=== PATIENT | male | born 1980 | race Caucasian/White ===

== ENCOUNTER 2023-08-01 09:21 | Inpatient (IN) | payer BC ==
[2023-08-01] MEDS ORDERED: ASPIRIN 81 MG CHEWABLE TABLET ONE (09:45)
[2023-08-01 09:47] LABS: Hematocrit 47.8 % (39.6-49.0); Lymphocytes % 27.1 % (15.3-44.8); MCV 83.4 fL (80-100); MPV 7.6 fL (7.6-11.3); Platelets 262 thou/uL (152-406); RBC Red Blood Cell Count 5.74 M/uL (4.33-5.43)
[2023-08-01 09:49] LABS: Protime INR 1.18
--- NOTE | 2023-08-01 09:56 | RAD REPORT ---
EXAM DESCRIPTION: RAD - Chest Single View - 08/01/2023 9:48 am CLINICAL HISTORY: CHEST PAIN Chest pain. COMPARISON: No comparisons FINDINGS: Portable technique limits examination quality. The lungs are grossly clear. The heart is normal in size. No displaced fractures. IMPRESSION: No acute intrathoracic process suspected.
[2023-08-01 10:05] LABS: Potassium 3.7 mEq/L (3.5-5.1)
[2023-08-01 10:07] LABS: Troponin High Sensitivity 313.2 pg/mL (<58.9)
--- NOTE | 2023-08-01 10:24 | EDPHYS ---
Physician Documentation [facility] Name: Shawn Pearson Age: 43 yrs Sex: Male : 1980 Arrival Date: 08/01/2023 Time: : Bed 6 Private MD: ED Physician Mike Hernandez HPI: 08/01 09:31 This 43 yrs old Male presents to ER via Ambulatory with complaints of Chest Pain. jh7 09:31 Onset: The symptoms/episode began/occurred yesterday, and became worse today. jh7 Associated signs and symptoms: Pertinent positives: chest pain, Pertinent negatives: abdominal pain, fever, shortness of breath, vomiting, wheezing. 43-year-old male presents to the ER for chest pain that started yesterday. He reports that the pain worsened today and he woke up diaphoretic. He does have a history of anxiety and took a lorazepam as well as a baby aspirin before coming. He denies any cardiac history and reports a negative stress test in May. He describes the pain as pressure over the left side of his sternum. He states that he is also on metoprolol for rate control.. Historical: - Allergies: 09: No Known Allergies; nj1 - Home Meds: : losartan 100 mg oral tablet 1 tab daily [Active]; rosuvastatin 20 mg oral tablet 1 tab mb9 daily [Active]; lamotrigine 150 mg oral tablet 2 tabs daily [Active]; esomeprazole magnesium 40 mg oral capsule,delayed release (e.c.) 1 cap daily [Active]; metoprolol tartrate 25 mg Oral tablet 2 tabs daily [Active]; amlodipine 5 mg tablet 1 tab daily [Active]; tadalafil 10 mg oral tablet 1 tab daily [Active]; anastrozole 1 mg oral tablet 2 tab weekly [Active]; - PMHx: : Hypertensive disorder; Hypercholesterolemia; Bipolar disorder; nj1 - PSHx: 10: None; mb9 - Immunization history:: Client reports receiving the 2nd dose of the Covid vaccine. - Social history:: Smoking status: Patient denies any tobacco usage or history of. ROS: 09:31 Constitutional: Negative for fever, chills, and weight loss, Eyes: Negative for injury, jh7 pain, redness, and discharge, Neck: Negative for injury, pain, and swelling, Respiratory: Negative for shortness of breath, cough, wheezing, and pleuritic chest pain, Abdomen/GI: Negative for abdominal pain, nausea, vomiting, diarrhea, and constipation, MS/Extremity: Negative for injury and deformity, Skin: Negative for injury, rash, and discoloration, Neuro: Negative for headache, weakness, numbness, tingling, and seizure, 09:31 Cardiovascular: Positive for chest pain, Negative for palpitations, 09:31 All other systems are negative, Exam: :31 Constitutional: This is a well developed, well nourished patient who is awake, alert, jh7 and in no acute distress. Head/Face: Normocephalic, atraumatic. Cardiovascular: Regular rate and rhythm with a normal S1 and S2. No gallops, murmurs, or rubs. Normal PMI, no JVD. No pulse deficits. Respiratory: Lungs have equal breath sounds bilaterally, clear to auscultation and percussion. No rales, rhonchi or wheezes noted. No increased work of breathing, no retractions or nasal flaring. Back: No spinal tenderness. No costovertebral tenderness. Full range of motion. Skin: Warm, dry with normal turgor. Normal color with no rashes, no lesions, and no evidence of cellulitis. MS/ Extremity: Pulses equal, no cyanosis. Neurovascular intact. Full, normal range of motion. Neuro: Awake and alert, GCS 15, oriented to person, place, time, and situation. Motor strength 5/5 in all extremities. Sensory grossly intact. Normal gait. Vital Signs: 09:23 BP 149 / 87; Pulse 92; Resp 17; Temp 97.8(O); Pulse Ox 98% on R/A; Weight 136.08 kg; nj1 Height 6 ft. 3 in. ; Pain 3/10; 09:59 BP 123 / 76; Pulse 84; Resp 18; Pulse Ox 99% ; nw1 11:16 BP 135 / 90; Pulse 87; Resp 14; Pulse Ox 99% ; ko1 12:32 BP 124 / 82; Pulse 82; Resp 16; Pulse Ox 99% ; ko1 09:23 Body Mass Index 37.50 (136.08 kg, 190.5 cm) [facility] 09:23 Pain Scale: Adult [facility] MDM: 09:23 Patient medically screened. [facility] 11:02 Differential diagnosis: pneumonia Acute OR, NSTEMI, unstable angina, stable angina, jh7 costochondritis, cardiac arrhythmia. Data reviewed: vital signs, nurses notes, lab test result(s), EKG, radiologic studies, plain films. Consideration of Admission/Observation Patient was admitted/placed on observation. Management of patient was discussed with the following: Hospitalist: OMAIRA Ferguson for Dr. Lane. I considered the following discharge prescriptions or medication management in the emergency department Medications were administered in the Emergency Department. See MAR. Independent interpretation of the following test(s) in the Emergency Department EKG: See my EKG interpretation above. Care significantly affected by the following chronic conditions: Hypertension. Scoring Tools HEART Score: History: Total Score = 4. Counseling: I had a detailed discussion with the patient and/or guardian regarding the historical points, exam findings, and any diagnostic results supporting the discharge/admit diagnosis, the need for further work-up and treatment in the hospital. Response to treatment: the patient's symptoms have markedly improved after treatment. 08/01 09:28 Order name: Basic Metabolic Panel; Complete Time: 10: [facility] 08/01 09:28 Order name: CBC with Diff; Complete Time: [facility] 08/01 09:28 Order name: D-Dimer; Complete Time: [facility] 08/01 09:28 Order name: NT PRO-BNP; Complete Time: 10: [facility] 08/01 09:28 Order name: PT-INR; Complete Time: [facility] 08/01 09:28 Order name: Troponin HS; Complete Time: 10: [facility] 08/01 11:08 Order name: Ptt, Activated; Complete Time: mb9 08/01 09:28 Order name: XRAY Chest (1 view); Complete Time: [facility] 08/01 09:28 Order name: EKG; Complete Time: [facility] 08/01 09:28 Order name: Cardiac monitoring; Complete Time: [facility] 08/01 09:28 Order name: EKG - Nurse/Tech; Complete Time: : [facility] 08/01 09:28 Order name: IV Saline Lock; Complete Time: [facility] 08/01 09:28 Order name: Labs collected and sent; Complete Time: [facility] 08/01 09:28 Order name: O2 Per Protocol; Complete Time: [facility] 08/01 09:28 Order name: O2 Sat Monitoring; Complete Time: [facility] 08/01 11:00 Order name: NPO; Complete Time: 11:06 la1 EC: Rate is 89 beats/min. Rhythm is regular. QRS Gary is Normal. [place] interval is normal at [facility] 172 msec. QRS interval is normal at 94 msec. QT interval is normal at 348 msec. No Q waves. T waves are Normal. No ST changes noted. Clinical impression: Normal ECG. Administered Medications: 09:32 Drug: Aspirin PO Chewable Tablet 243 mg PO once; 81 mg tablets x 3 Route: PO; 9 11:40 Drug: Heparin (OR-Bolus No thrombolytic) - HEParin IVP 60 units/kg IVP once; Max 5000 ko1 units {Co-Signature: samra (Sharri Medina RN).} Route: IVP; Site: left forearm; 11:45 Drug: Heparin (OR Drip) 12 units/kg/[place] - ([place] [address] units, D5W IV 500 ml) IV at ko1 calculated rate Per protocol; Max initial rate 1000 units/hr {Co-Signature: samra (Sharri Medina RN).} Route: IV; Rate: calculated rate; Site: left forearm; Disposition Summary: 08/01/23 10:23 Hospitalization Ordered Notes: Hospitalization Status: Inpatient Admission [facility] Provider: Heri Lane [facility] Location: Telemetry/MedSurg (Inpatient) [facility] Condition: Stable [facility] Problem: new [facility] Symptoms: have improved [facility] Bed/Room Type: Standard [facility] Room Assignment: [facility] Diagnosis - Subsequent non-ST elevation (NSTEMI) myocardial infarction [facility] - Essential (primary) hypertension [facility] Forms: - Medication Reconciliation Form [facility] - SBAR form [facility] - Leadership Thank You Letter [facility] Signatures: Dispatcher [employer] EDMarty Tran FNP-C FNP-[facility] Gosia Yi FNP FNP [facility] Varsha Wagner RN RN ko1 Sharri Medina RN RN mb9 Beth Foss RN RN nj1 Sharri Medina RN mb9 Corrections: (The following items were deleted from the chart) 11:02 09:31 43-year-old male presents to the ER for chest pain that started yesterday. He jh7 reports that the pain worsened today. He does have a history of anxiety and took a lorazepam before coming. He denies any cardiac history and reports a negative stress test in May. He describes the pain as pressure over the left side of his sternum. He states that he is also on metoprolol for rate control.. jh7
--- NOTE | 2023-08-01 10:24 | ER ---
Nurse's Notes [facility] Name: Shawn Pearson Age: 43 yrs Sex: Male : 1980 Arrival Date: 08/01/2023 Time: : Bed 6 Private MD: Diagnosis: Subsequent non-ST elevation (NSTEMI) myocardial infarction;Essential (primary) hypertension Presentation: 08/01 09:23 Chief complaint: Patient states: Chest pain since yesterday, worsen in the afternoon. [email or web address] Took a lorazepam this morning, pain a little better but still there. Had cardiac work up not long ago. 09:23 Coronavirus screen: Vaccine status: Patient reports receiving the 2nd dose of the covid nj1 vaccine. Ebola Screen: Patient denies travel to an Ebola-affected area in the 21 days before illness onset. Initial Sepsis Screen: Does the patient meet any 2 criteria? HR > 90 bpm. No. Patient's initial sepsis screen is negative. Does the patient have a suspected source of infection? No. Patient's initial sepsis screen is negative. Risk Assessment: Do you want to hurt yourself or someone else? Patient reports no desire to harm self or others. Onset of symptoms was July 21, 2023. 09:23 Method Of Arrival: Ambulatory [facility] 09:23 Acuity: PORFIRIO 3 [facility] Historical: - Allergies: : No Known Allergies; nj1 - Home Meds: : losartan 100 mg oral tablet 1 tab daily [Active]; rosuvastatin 20 mg oral tablet 1 tab mb9 daily [Active]; lamotrigine 150 mg oral tablet 2 tabs daily [Active]; esomeprazole magnesium 40 mg oral capsule,delayed release (e.c.) 1 cap daily [Active]; metoprolol tartrate 25 mg Oral tablet 2 tabs daily [Active]; amlodipine 5 mg tablet 1 tab daily [Active]; tadalafil 10 mg oral tablet 1 tab daily [Active]; anastrozole 1 mg oral tablet 2 tab weekly [Active]; - PMHx: : Hypertensive disorder; Hypercholesterolemia; Bipolar disorder; nj1 - PSHx: 10: None; mb9 - Immunization history:: Client reports receiving the 2nd dose of the Covid vaccine. - Social history:: Smoking status: Patient denies any tobacco usage or history of. Screenin:[facility] Fall Risk Assessment (Adult) History of falling in the last 3 months, mb9 including since admission No falls in past 3 months (0 pts) Confusion or Disorientation No (0 pts) Intoxicated or Sedated No (0 pts) Impaired Gait No (0 pts) Mobility Assist Device Used No (0 pt) Altered Elimination No (0 pt) Score/Fall Risk Level 0 - 2 = Low Risk Oriented to surroundings, Maintained a safe environment, Educated pt \T\ family on fall prevention, incl call for assistance when getting out of bed. Abuse screen: Denies threats or abuse. Nutritional screening: No deficits noted. Tuberculosis screening: No symptoms or risk factors identified. Assessment: 09:33 General: Appears in no apparent distress. Behavior is calm, cooperative, appropriate mb9 for age. Pain: Complains of pain in chest Pain does not radiate. Pain currently is 3 out of 10 on a pain scale. Quality of pain is described as dull, throbbing, Pain began 1 day ago. Is intermittent. Neuro: Borrego Agitation-Sedation Scale (RASS): 0 - Alert and Calm Level of Consciousness is awake, alert, obeys commands, Oriented to person, place, time, situation, Appropriate for age. Cardiovascular: Reports chest pain, diaphoresis, Heart tones S1 S2 present Patient's skin is warm and dry. Rhythm is regular. Respiratory: Airway is patent Respiratory effort is even, unlabored, Respiratory pattern is regular, symmetrical, Breath sounds are clear bilaterally. GI: Abdomen is obese, Bowel sounds present X 4 quads. Abd is soft and non tender X 4 quads. : No signs and/or symptoms were reported regarding the genitourinary system. EENT: No signs and/or symptoms were reported regarding the EENT system. Derm: Skin is pink, warm \T\ dry. Musculoskeletal: Range of motion: intact in all extremities. 10:31 Reassessment: No changes from previously documented assessment. Patient and/or family mb9 updated on plan of care and expected duration. Pain level reassessed. Patient is alert, oriented x 3, equal unlabored respirations, skin warm/dry/pink. 11:48 Reassessment: No changes from previously documented assessment. Patient and/or family mb9 updated on plan of care and expected duration. Pain level reassessed. Patient is alert, oriented x 3, equal unlabored respirations, skin warm/dry/pink. Vital Signs: 09:23 BP 149 / 87; Pulse 92; Resp 17; Temp 97.8(O); Pulse Ox 98% on R/A; Weight 136.08 kg; nj1 Height 6 ft. 3 in. ; Pain 3/10; 09:59 BP 123 / 76; Pulse 84; Resp 18; Pulse Ox 99% ; nw1 11:16 BP 135 / 90; Pulse 87; Resp 14; Pulse Ox 99% ; ko1 12:32 BP 124 / 82; Pulse 82; Resp 16; Pulse Ox 99% ; ko1 09:23 Body Mass Index 37.50 (136.08 kg, 190.5 cm) nj1 09:23 Pain Scale: Adult [facility] ED Course: 09:22 Patient arrived in ED. im 09:23 Gosia Yi FNP is PHCP. jh7 09:23 Mike Hernandez MD is Attending Physician. jh7 09:29 Sharri Medina, MATTHEW is Primary Nurse. mb9 09:30 Basic Metabolic Panel Sent. mb9 09:30 CBC with Diff Sent. mb9 09:30 D-Dimer Sent. mb9 09:30 NT PRO-BNP Sent. mb9 09:30 PT-INR Sent. mb9 09:30 Troponin HS Sent. mb9 09:30 EKG done, by ED staff, reviewed by Gosia PEREIRA. Inserted saline lock: 18 gauge mb9 in right antecubital area, using aseptic technique. Blood collected. 09:31 Triage completed. nj1 09:31 Arm band placed on right wrist. nj1 09:34 Placed in gown. Bed in low position. Call light in reach. Side rails up X 1. Client mb9 placed on continuous cardiac and pulse oximetry monitoring. NIBP monitoring applied. fixed capital clerk on. 09:50 XRAY Chest (1 view) In Process Unspecified. EDMS 10:06 Notified Nurse Practitioner and/or Physician [place] Operator of a critical lab result(s), hb TROPONIN 313.2. 10:[address] MD is Hospitalizing Provider. 7 11:23 Ptt, Activated Sent. mb9 11:35 Inserted saline lock: 18 gauge in left forearm, using aseptic technique. zm 12:32 No provider procedures requiring assistance completed. Patient admitted, IV remains in ko1 place. Patient maintains SpO2 saturation greater than 95% on room air. 12:32 Provided Education on: Procedure Consent. ko1 Administered Medications: 09:32 Drug: Aspirin PO Chewable Tablet 243 mg PO once; 81 mg tablets x 3 Route: PO; mb9 11:40 Drug: Heparin (IA-Bolus No thrombolytic) - HEParin IVP 60 units/kg IVP once; Max 5000 ko1 units {Co-Signature: samra (Sharri Medina RN).} Route: IVP; Site: left forearm; 11:45 Drug: Heparin (IA Drip) 12 units/kg/[place] - ([place] [address] units, D5W IV 500 ml) IV at ko1 calculated rate Per protocol; Max initial rate 1000 units/hr {Co-Signature: samra (Sharri Medina RN).} Route: IV; Rate: calculated rate; Site: left forearm; Medication: 09:34 VIS not applicable for this client. 9 Outcome: 10:23 Decision to Hospitalize by Provider. [facility] 12:32 Admitted to Perfect Binder Operator accompanied by nurse, via wheelchair, on monitor, with chart, ko 12:32 Condition: stable 12:32 Instructed on the need for admit, Demonstrated understanding of instructions, 12:33 Patient left the ED. ko Signatures: Dispatcher [employer] EDNV Jen Garcia RN RN hb Martinez, Zaina zm Hadash, Jennifer, NAPPER FIXER NAPPER FIXER 7 Varsha Wagner RN RN ko1 Sharri Medina, RN RN mb9 Beth Foss RN RN nj1 Debbie Presley Nicole, MATTHEW RN nw1 Sharri Medina RN mb9 Corrections: (The following items were deleted from the chart) 10:21 10:13 Notified Nurse Practitioner and/or Physician [place] Operator of a critical lab hb result(s), TROPONIN 313.2 hb 11:48 11:48 Inserted saline lock: 18 gauge in left forearm, using aseptic technique. tanya martínez
[2023-08-01] MEDS ORDERED: HEPARIN/D5W 25,000 UNIT/500 ML BAG IV ONE (11:22)
[2023-08-01] MEDS ORDERED: HEPARIN 5000 UNIT/ML 1 ML VIAL ONE ×2 (11:22→13:36)
[2023-08-01] MEDS ORDERED: MORPHINE 2 MG/ML SYR IV PRN (11:52)
[2023-08-01] MEDS ORDERED: ONDANSETRON 4 MG/2 ML VIAL IV PRN (11:52)
[2023-08-01] MEDS: NA CHLORIDE 0.9% 1,000 ML IV SCH (12:00)
[2023-08-01] MEDS ORDERED: HEPARIN/D5W 25,000 UNIT/500 ML BAG IV PRN (12:00)
[2023-08-01] MEDS ORDERED: HEPA 1000U/500MLS 2,000 UNIT/1,000 ML BAG IV ONE (13:35)
[2023-08-01] MEDS ORDERED: LIDOCAINE 1% 20 ML MDV ONE (13:35)
[2023-08-01] MEDS ORDERED: VERAPAMIL HCL 10 MG/4 ML VIAL IV ONE (13:36)
[2023-08-01] MEDS ORDERED: FENTANYL CITR 100 MCG/2 ML ONE (13:36)
[2023-08-01] MEDS ORDERED: CLOPIDOGREL 75 MG TABLET ONE (13:36)
[2023-08-01] MEDS ORDERED: MIDAZOLAM HCL 2 MG/2 ML INJ ONE (13:36)
[2023-08-01] MEDS ORDERED: TICAGRELOR 90 MG TABLET PO ONE (13:37)
[2023-08-01] MEDS ORDERED: ASPIRIN 325 MG TAB ONE (13:37)
[2023-08-01] MEDS ORDERED: ATROPINE SULF 1 MG/10 ML SYR IV ONE (13:37)
[2023-08-01] MEDS ORDERED: HEPARIN 10,000 UNIT/10 ML VIAL IV ONE (13:37)
--- NOTE | 2023-08-01 15:39 | P.HP ---
Certification for Inpatient Patient admitted to: Inpatient With expected LOS: >2 Midnights Patient will require the following post-hospital care: None Practitioner: I am a practitioner with admitting privileges, knowledge of patient current condition, hospital course, and medical plan of care. Services: Services provided to patient in accordance with Admission requirements found in Title 42 Section 412.3 of the Code of Federal Regulations Patient History Date of Service: 08/01/23 Reason for admission: NSTEMI History of Present Illness: 43-year-old male with history of hypertension, hyperlipidemia presented to the emergency department chief complaint of chest pain. He is visiting from out of town and awoke to chest tightness with associated diaphoresis lasting 15 to 20 minutes and then becoming a dull ache for the next 30 minutes to 1 hour. He reports having a treadmill stress test in May which was normal, he has never had a heart catheterization. He was evaluated in the emergency department his labs were significant for elevated high-sensitivity opponent 313.2 initially D-dimer 314 EKG without STEMI criteria. Patient started on heparin, cardiology was notified and brought patient to the [facility] for left heart cath. Allergies No Known Allergies Allergy (Unverified 08/01/23 11:51) - Past Medical/Surgical History -: Hypertension -: Hyperlipidemia -: None Psychosocial/ Personal History: Lives at home with family, works in real estate - Family History Father -: Heart disease - Social History Smoking Status: Never smoker Alcohol use: Yes CD- Drugs: No Caffeine use: Yes Place of Residence: Home Review of Systems 10-point ROS is otherwise unremarkable Cardiovascular: Chest Pain, Other (Diaphoresis) Physical Examination - Vital Signs Temperature: 98.0 F Blood Pressure: 133/78 Pulse: 78 Respirations: 16 - Physical Exam General: Alert, In no apparent distress, Oriented x3 HEENT: Atraumatic, PERRLA Neck: Supple Respiratory: Clear to auscultation bilaterally, Normal air movement Cardiovascular: Regular rate/rhythm, Normal S1 S2 Gastrointestinal: Normal bowel sounds, No tenderness Musculoskeletal: No tenderness Integumentary: No rashes Neurological: Normal gait, Normal tone, Normal affect - Studies Laboratory Data (last 24 hrs) 08/01/23 08/01/23 08/01/23 09:25 09:25 09:25 WBC 7.40 Hgb 16.6 Hct 47.8 Plt Count 262 PT 13.0 H INR 1.18 APTT 33.4 Sodium Potassium BUN Creatinine Glucose 08/01/23 09:25 WBC Hgb Hct Plt Count PT INR APTT Sodium 137 Potassium 3.7 BUN 9 Creatinine 1.03 Glucose 108 H Assessment and Plan - Plan Assessment: NSTEMI Hypertension Hyperlipidemia Plan: NSTEMI Given aspirin in ED, started on heparin drip Pain resolved Taken to [facility] by cardiology, awaiting results Continue aspirin, statin, beta-jody, await cardiology recommendations Hypertension Continue home medications Hyperlipidemia Continue statin, lipid panel ordered DVT PPX: Heparin drip Code status: Full Discharge Plan: Home Plan to discharge in: 48 Hours - Advance Directives Does patient have a Living Will: No Does patient have a Durable POA for Healthcare: No - Code Status/Comfort Care Code Status Assessed: Yes (Full code) Critical Care: No Time Spent Managing Pts Care (In Minutes): 55
[2023-08-01 16:21] VITALS: O2SAT 97; BMI 37.5
[2023-08-01] MEDS ORDERED: ATORVASTATIN 40 MG TAB PO SCH (21:00)
[2023-08-01] MEDS ORDERED: MAGNES/ALUMIN/SIMET 30ML UCUP PO ONE (21:58)
[2023-08-01] MEDS ORDERED: PANTOPRAZOLE 40MG TABLET PO ONE (22:01)
[2023-08-02] MEDS: NA CHLORIDE 0.9% 1,000 ML IV SCH (00:12)
[2023-08-02 02:05] LABS: Absolute Lymphocytes (CBC) 3.1 K/uL (0.7-4.9); Hematocrit 43.1 % (39.6-49.0); Lymphocytes % 32.6 % (15.3-44.8); MCV 83.4 fL (80-100); MPV 7.6 fL (7.6-11.3); Platelets 285 thou/uL (152-406); RBC Red Blood Cell Count 5.17 M/uL (4.33-5.43)
[2023-08-02 02:34] LABS: Albumin 3.2 g/dL (3.4-5.0); Bilirubin Total 0.4 mg/dL (0.2-1.0); Magnesium 2.1 mg/dL (1.6-2.4); Potassium 3.8 mEq/L (3.5-5.1); Protein, Total 6.2 g/dL (6.4-8.2)
[2023-08-02 07:49] VITALS: BP 145/89; TEMP 97.8
[2023-08-02] MEDS ORDERED: POTASSIUM CL SA 10 MEQ TAB PO ONE (09:00)
[2023-08-02] MEDS ORDERED: ASPIRIN 81 MG CHEWABLE TABLET PO SCH (09:00)
--- NOTE | 2023-08-02 11:39 | ECHO ---
HEIGHT: 6 ft 3 in WEIGHT: 300 lb 0 oz DATE OF STUDY: 08/01/[address]: Musa Cote 2-DIMENSIONAL: YES M.MODE: YES DOPPLER: YES COLOR FLOW: YES TDS: PORTABLE: YES DEFINITY: BUBBLE STUDY: DIAGNOSIS: CHEST PAIN CARDIAC HISTORY: CATHERIZATION: YES SURGERY: NO PROSTHETIC VALVE: NO PACEMAKER: NO MEASUREMENTS (cm) DIASTOLIC (NORMALS) SYSTOLIC (NORMALS) IVSd 1.2 (0.6-1.2) LA Diam 3.9 (1.9-4.0) LVEF 45% LVIDd 5.6 (3.5-5.7) LVIDs 4.3 (2.0-3.5) %FS 23% LVPWd 1.4 (0.6-1.2) Ao Diam 3.5 (2.0-3.7) 2 DIMENSIONAL ASSESSMENT: RIGHT ATRIUM: NORMAL LEFT ATRIUM: MILD DILATED RIGHT VENTRICLE: SLIGHTLY DILATED, NORMAL FUNCTION LEFT VENTRICLE: NORMAL SIZE AND FUNCTION. LOW NORMAL 50% TRICUSPID VALVE: TRACE TRICUSPID REGURGITATION MITRAL VALVE: NORMAL PULMONIC VALVE: NOT WELL VISUALIZED AORTIC VALVE: NORMAL PERICARDIAL EFFUSION: NONE AORTIC ROOT: NORMAL LEFT VENTRICULAR WALL MOTION: NORMAL DOPPLER/COLOR FLOW: COMMENTS: 1. MILDLY DILATED LEFT ATRIUM 2. SLIGHTLY DILATED RIGHT VENTRICLE, NORMAL FUNCTION 3. NORMAL LEFT VENTRICULAR SIZE AND FUNCTION. LOW NORMAL 50% 4. TRACE TRICUSPID REGURGITATION TECHNOLOGIST: NIRALI ALMARAZ
--- NOTE | 2023-08-02 13:34 | P.DS ---
Admission Date: 08/01/23 Discharge Date: 08/02/23 Disposition: ROUTINE DISCHARGE Discharge Condition: GOOD Reason for Admission: NSTEMI Consultations: Cardiology- Procedures: Heart cath- non-obstructive mild LAD disease-see report for details Brief History of Present Illness: 43-year-old male with history of hypertension, hyperlipidemia presented to the emergency department chief complaint of chest pain. He is visiting from out of town and awoke to chest tightness with associated diaphoresis lasting 15 to 20 minutes and then becoming a dull ache for the next 30 minutes to 1 hour. He reports having a treadmill stress test in May which was normal, he has never had a heart catheterization. He was evaluated in the emergency department his labs were significant for elevated high-sensitivity opponent 313.2 initially D-dimer 314 EKG without STEMI criteria. Patient started on heparin, cardiology was notified and brought patient to [facility] for [facility] heart cath. Hospital Course: Patient was admitted to the hospital for chest pain, NSTEMI. He was taken to the [facility] on day of admission and per cardiology had mild disease of the LAD with no indication for intervention. Subsequent echocardiogram was performed which revealed mildly dilated left atrium, slightly dilated right ventricle, normal function, normal left ventricular size and function. Low normal 50%, trace tricuspid regurgitation Initial high-sensitivity troponin was 313.2, peaked at 747.0, D-dimer was negative, CRP level was 10.10 Patient remained chest pain-free since presentation to the hospital. It is recommended he follows up closely with his PCP and cardiology ideally in 1 week. Strict return precautions given. Continue other home medications as prescribed. Vital Signs/Physical Exam: Temp Pulse Resp BP Pulse Ox 97.8 F 86 15 145/89 H 96 08/02/23 07:45 08/02/23 07:45 08/02/23 07:45 08/02/23 07:45 08/02/23 07:45 General: Alert, In no apparent distress, Oriented x3 HEENT: Atraumatic, PERRLA Neck: Supple, JVD not distended Respiratory: Clear to auscultation bilaterally, Normal air movement Cardiovascular: Regular rate/rhythm, Normal S1 S2 Gastrointestinal: Normal bowel sounds, No tenderness Musculoskeletal: No tenderness Integumentary: No rashes Neurological: Normal speech Laboratory Data at Discharge: WBC 9.50 thou/uL (4.3-10.9) 11/22/23 01:42 Hgb 14.5 g/dL (13.6-17.9) D 08/02/23 01:42 Hct 43.1 % (39.6-49.0) 08/02/23 01:42 Plt Count 285 thou/uL (152-406) 08/02/23 01:42 PT 13.0 SECONDS (9.5-12.5) H 08/01/23 09:25 INR 1.18 08/01/23 09:25 APTT 33.4 SECONDS (24.3-36.9) 08/01/23 09:25 Sodium 138 mEq/L (136-145) 08/02/23 01:42 Potassium 3.8 mEq/L (3.5-5.1) 08/02/23 01:42 BUN 9 mg/dL (7-18) 08/02/23 01:42 Creatinine 0.88 mg/dL (0.70-1.30) 08/02/23 01:42 Glucose 92 mg/dL (74-106) 08/02/23 01:42 Magnesium 2.1 mg/dL (1.6-2.4) 08/02/23 01:42 Total Bilirubin 0.4 mg/dL (0.2-1.0) 08/02/23 01:42 AST 17 U/L (15-37) 08/02/23 01:42 ALT 54 U/L (16-61) 08/02/23 01:42 Alkaline Phosphatase 79 U/L (45-117) 08/02/23 01:42 Triglycerides 184 mg/dL (<150) H 08/02/23 01:42 Cholesterol 103 mg/dL (<200) 08/02/23 01:42 HDL Cholesterol 23 mg/dL (40-60) L 08/02/23 01:42 Cholesterol/HDL Ratio 4.48 08/02/23 01:42 Physician Discharge Instructions: PROBLEM: NSTEMI, Chest Pain, Status Post Heart Cath GOAL: Clear understanding of disease process Patient was admitted to the hospital for chest pain, NSTEMI. He was taken to [facility] on day of admission and per cardiology had mild disease of the LAD with no indication for intervention. Subsequent echocardiogram was performed which revealed mildly dilated left atrium, slightly dilated right ventricle, normal function, normal left ventricular size and function. Low normal 50%, trace tricuspid regurgitation Initial high-sensitivity troponin was 313.2, peaked at 747.0, D-dimer was negative, CRP level was 10.10 Patient remained chest pain-free since presentation to the hospital. INSTRUCTIONS: It is recommended he follows up closely with his PCP and cardiology ideally in 1 week. Strict return precautions given. Continue other home medications as prescribed including aspirin, statin, and metoprolol. Return to ER for any emergency Diet: AHA Activity: Ad reva DME DME: Date Ordered: Name of Company: [employer] Services Needed: None Name of Company: Date or Referral: IMMUNIZATION Influenza Vaccine Indicated: No Influenza Vaccine Given: Date Given: Pneumonia Vaccine Indicated: No Pneumonia Vaccine Given: Date Given: Diet: AHA Activity: Ad reva Followup: DANIEL SANCHEZ [Primary Care Provider] - 1 Week Musa Cote MD [ACTIVE - CAN ADMIT] - 1 Week Time spent managing pt's care (in minutes): 35
--- NOTE | 2023-08-02 16:53 | EKG ---
Test Date: 2023-08-01 Test Time: 09:28:55 [employer]: HB MEASUREMENT RESULTS: Intervals: Rate: 89 MO: 172 QRSD: 94 QT: 348 QTc: 423 [place]: P: 21 MO: 172 QRS: 2 T: 54 INTERPRETIVE STATEMENTS: Normal sinus rhythm Normal ECG No previous ECG available for comparison Electronically Signed On 08-02-23 16:50:04 [employer] by Musa Cote
== END 2023-08-02 13:39 | disposition home or self-care (01) | DRG 282 ==
LOC: ER 09:21 → ERHOLD 11:15 → 4TH 15:18
PROVIDERS: ADMIT Hospitalist; ATTEND Hospitalist
PROC: 4A023N7 Measurement of Cardiac Sampling and Pressure, Left Heart, Percutaneous Approach (ICD-10-PCS; principal; 2023-08-01)
PROC: B2111ZZ Fluoroscopy of Multiple Coronary Arteries using Low Osmolar Contrast (ICD-10-PCS; 2023-08-01)
DX: I21.4 Non-ST elevation (NSTEMI) myocardial infarction (principal); I10 Essential (primary) hypertension; F41.9 Anxiety disorder, unspecified; E78.00 Pure hypercholesterolemia, unspecified; Z79.82 Long term (current) use of aspirin; Z79.899 Other long term (current) drug therapy
CPT/HCPCS: 36415; 71045; 76937; 80048; 80053; 80061; 83735; 83880; 84484; 85025; 85347; 85379; 85610; 85730; 86140; 93005; 93306; 93458; 96374; 99285; C1893; J0461; J1644; J2001; J2250; J3010; J7030; Q9966